=== PATIENT | male | born 2000 | race African-American/Black ===

== ENCOUNTER 2021-11-17 10:33 | Emergency (ER) | payer OTHER ==
[~2021-11-17] VITALS: Ht 182.9 cm; Wt 77.1 kg
[2021-11-17] MEDS ORDERED: SODIUM CHLORIDE 0.9% 1,000 ML IV ONE ×2 (10:45)
[2021-11-17 11:39] LABS: Basophils # (auto) 0 10 ^3/uL (0-0.2); Basophils % (auto) 0.3 % (0.0-2.0); Eosinophils # (auto) 0.3 10 ^3/uL (0-0.8); Hematocrit 37.8 % (41.0-53.0); Lymphocytes # (auto) 2.2 10 ^3/uL (0.4-5.4); Lymphocytes % (auto) 28.7 % (10.0-50.0); Mean Corpuscular Hgb Conc. 34.3 g/dL (32.0-36.0); Mean Corpuscular Volume 84.3 fL (80.0-100.0); Monocytes # (auto) 0.5 10 ^3/uL (0-1.3); Monocytes % (auto) 7.1 % (0.0-12.0); Neutrophils # (auto) 4.6 10 ^3/uL (1.6-8.6); Neutrophils % (auto) 59.9 % (37.0-80.0); Red Blood Cells 4.48 10^6/uL (4.5-5.90); White Blood Cell 7.7 10^3/uL (4.4-10.8)
[2021-11-17 11:59] LABS: Potassium 3.5 mmol/L (3.5-5.1)
[2021-11-17 12:00] VITALS: BP 114/61
[2021-11-17 12:09] LABS: Albumin 3.2 g/dL (3.4-5.0); BUN/Creatinine Ratio 12.8; Bilirubin, Total 2.3 mg/dL (0.2-1.0); Calcium 8.1 mg/dL (8.5-10.1); Total Protein 5.5 g/dL (6.4-8.2)
== END 2021-11-17 15:09 | disposition home or self-care (01) ==
LOC: ER 10:33
DX: R55 Syncope and collapse (principal); E86.0 Dehydration; E46 Unspecified protein-calorie malnutrition; Z68.23 Body mass index [BMI] 23.0-23.9, adult
CPT/HCPCS: 36415; 70450; 80053; 84484; 85025; 93005; 96360; 99285; J7030